=== PATIENT | male | born 1975 | race Caucasian/White ===

== ENCOUNTER 2020-07-14 09:02 | Emergency (ER) | payer OTHER ==
[~2020-07-14] VITALS: Wt 79.4 kg
[2020-07-14] MEDS ORDERED: CEPHALEXIN500 M1 PO (10:29)
== END 2020-07-14 11:15 | disposition home or self-care (01) ==
LOC: ED 09:02
DX: S61.011A Laceration without foreign body of right thumb without damage to nail, initial encounter (principal); W26.0XXA Contact with knife, initial encounter; Y93.89 Activity, other specified; Y92.89 Other specified places as the place of occurrence of the external cause; Y99.8 Other external cause status